=== PATIENT | female | born 1955 | race Caucasian/White ===

== ENCOUNTER 2016-04-19 21:43 | Emergency (ER) | payer MEDICARE ==
[~2016-04-19 21:43] MED LIST: AMLO10TA2 PO; CALC-250 PO; CYAN10005 PO; CYCL10TA2 PO; HYDR12.58 PO; LISI40TA PO; LOVA20TA2 PO; MAGN400T3 PO; MELO-150 PO; PROVENTIL HFA6.7 GM IH
[2016-04-19] MEDS ORDERED: ONDANSETRON PF 4 MG/2 ML VIAL. IV ONE (23:00)
[2016-04-19] MEDS ORDERED: IPRATRPIUM/ALBUTEROL 0.5/2.5MG 3 ML NEBU. NEB ONE (23:00)
[2016-04-19] MEDS ORDERED: HYDROMORPHONE 2 MG/ML VIAL. IV ONE (23:00)
[2016-04-19] MEDS ORDERED: methylPREDNISolone SOD SUCC PF 125 MG/2 ML VIAL. IV ONE (23:00)
[2016-04-19 23:30] LABS: BASO # 0.1 x10^3/uL (0.0-0.2); BASO % 1 % (0-3); EOS % 1 % (0-3); HEMATOCRIT 34.1 % (36.0-47.0); HEMOGLOBIN 11.2 g/dL (12.0-15.5); LYMPH # 3.1 x10^3/uL (1.0-4.8); LYMPH % 24 % (24-48); MEAN CORPUSCULAR HEMOGLOBIN 28 pg (25-35); MEAN CORPUSCULAR HGB CONC 33 g/dL (31-37); MEAN CORPUSCULAR VOLUME 84 fL (79-100); MONO % 6 % (0-9); NEUT % 68 % (31-73); PLATELET COUNT 456 x10^3/uL (140-400); RED BLOOD COUNT 4.06 x10^6/uL (3.50-5.40); RED CELL DISTRIBUTION WIDTH 15.6 % (11.5-14.5); WHITE BLOOD COUNT 12.9 x10^3/uL (4.0-11.0)
[2016-04-19 23:41] LABS: CALCIUM 9.3 mg/dL (8.5-10.1); GFR 56.4; POTASSIUM 3.4 mmol/L (3.5-5.1)
[2016-04-19 23:47] LABS: ALBUMIN 2.9 g/dL (3.4-5.0); ALBUMIN/GLOBULIN RATIO 0.6 (1.0-1.7); TOTAL BILIRUBIN 0.3 mg/dL (0.2-1.0)
[2016-04-20 00:24] LABS: OBC FLU VALID
[2016-04-20] MEDS ORDERED: PRED50TA PO (01:42)
[2016-04-20] MEDS ORDERED: HYDR-2678 PO (01:42)
--- NOTE | 2016-04-20 01:42 | PHYS DOC ---
Past Medical History Past Medical History: Anxiety, Asthma, Diabetes-Type II, High Cholesterol, Hypertension, Migraines Additional Past Medical Histor: osteoarthritis, eye lens, chronic ankle pain, KIDNEY DISEASE, neuropathy Past Surgical History: Hysterectomy, Tonsillectomy Additional Past Surgical Histo: eye lens placed (pseudophakia), multiple foot surgeries Alcohol Use: None Drug Use: None Adult General Chief Complaint Chief Complaint: COUGH HPI HPI Patient is a 61 year old female who presents here today secondary to cough for approximately a month. Patient reports that she came to the ER today because she was coughing so hard this afternoon that she felt a pop in her chest and her back. Patient is currently complaining of back discomfort. Patient has any fever or shaking chills nausea vomiting diarrhea. Patient reports that she's had this cough for approximately one half months and has seen her primary care physician for this. Patient reports she has a history of hypertension diabetes and asthma. Patient does smoke approximately 4-5 packs of cigarettes per day. Patient denies any coronary disease and MIs or heart failure. Patient reports that she has medications at home that she takes for her COPD and asthma. Review of Systems Review of Systems Constitutional: Denies fever or chills [] Eyes: Denies change in visual acuity, redness, or eye pain [] Review of systems are negative except as documented in history of present illness portion. Current Medications Current Medications Current Medications Medications (Trade) Dose Ordered Sig/Cain Start Time Stop Time Status Last Admin Dose Admin Albuterol/ Ipratropium (Duoneb) 3 ml 1X ONCE 04/19/16 23:00 04/19/16 23:01 DC 04/19/16 22:51 3 ML Hydromorphone HCl (Dilaudid) 1 mg 1X ONCE 04/19/16 23:00 04/19/16 23:01 DC 04/19/16 23:37 1 MG Methylprednisolone Sodium Succinate (Solu-Medrol 125mg Vial) 125 mg 1X ONCE 04/19/16 23:00 04/19/16 23:01 DC 04/19/16 23:36 125 MG Ondansetron HCl (Zofran) 4 mg 1X ONCE 04/19/16 23:00 04/19/16 23:01 DC 04/19/16 23:37 4 MG Allergies Allergies Allergies Coded Allergies Type Severity Reaction Last Updated Verified chlorpheniramine Allergy Severe Shortness of Air 09/16/14 Yes codeine Allergy Severe altered mental status 09/16/14 Yes dihydrocodeine Allergy Severe Shortness of Air 09/16/14 Yes phenylephrine Allergy Severe Shortness of Air 09/16/14 Yes pseudoephedrine Allergy Severe Shortness of Air 09/16/14 Yes Penicillins Allergy Intermediate Itching 09/16/14 Yes egg Allergy Mild Hives 09/16/14 Yes lactase Allergy Mild diarrhea 09/16/14 Yes Physical Exam Physical Exam Constitutional: Well developed, well nourished, no acute distress, non-toxic appearance. [] HENT: Normocephalic, atraumatic, bilateral external ears normal, oropharynx moist, no oral exudates, nose normal. [] Eyes: PERRLA, EOMI, conjunctiva normal, no discharge. [] Neck: Normal range of motion, no tenderness, supple, no stridor. [] Cardiovascular:Heart rate regular rhythm, expiratory wheezing. Patient does have tenderness to palpation to her lower back. [] Abdomen: Bowel sounds normal, soft, no tenderness, no masses, no pulsatile masses. [] Skin: Warm, dry, no erythema, no rash. [] Back: No tenderness, no CVA tenderness. [] Extremities: No tenderness, no cyanosis, no clubbing, ROM intact, no edema. [] Neurologic: Alert and oriented X 3, normal motor function, normal sensory function, no focal deficits noted. [] Psychologic: Affect normal, judgement normal, mood normal. [] Current Patient Data Vital Signs Vital Signs Date Time Temp Pulse Resp B/P Pulse Ox O2 Delivery O2 Flow Rate FiO2 04/19/16 23:37 Room Air 04/19/16 22:50 91 04/19/16 22:04 98.3 116 24 190/80 98.3 Lab Values Laboratory Tests Test 04/19/16 23:25 04/19/16 23:59 White Blood Count 12.9x10^3/uL (4.0-11.0) H Red Blood Count 4.06x10^6/uL (3.50-5.40) Hemoglobin 11.2g/dL (12.0-15.5) L Hematocrit 34.1% (36.0-47.0) L Mean Corpuscular Volume 84fL (79-100) Mean Corpuscular Hemoglobin 28pg (25-35) Mean Corpuscular Hemoglobin Concent 33g/dL (31-37) Red Cell Distribution Width 15.6% (11.5-14.5) H Platelet Count 456x10^3/uL (140-400) H Neutrophils (%) (Auto) 68% (31-73) Lymphocytes (%) (Auto) 24% (24-48) Monocytes (%) (Auto) 6% (0-9) Eosinophils (%) (Auto) 1% (0-3) Basophils (%) (Auto) 1% (0-3) Neutrophils # (Auto) 8.8x10^3uL (1.8-7.7) H Lymphocytes # (Auto) 3.1x10^3/uL (1.0-4.8) Monocytes # (Auto) 0.7x10^3/uL (0.0-1.1) Eosinophils # (Auto) 0.2x10^3/uL (0.0-0.7) Basophils # (Auto) 0.1x10^3/uL (0.0-0.2) Sodium Level 133mmol/L (136-145) L Potassium Level 3.4mmol/L (3.5-5.1) L Chloride Level 93mmol/L (98-107) L Carbon Dioxide Level 28mmol/L (21-32) Anion Gap 12 (6-14) Blood Urea Nitrogen 10mg/dL (7-20) Creatinine 1.0mg/dL (0.6-1.0) Estimated GFR (Cockcroft-Gault) 56.4 BUN/Creatinine Ratio 10 (6-20) Glucose Level 124mg/dL (70-99) H Calcium Level 9.3mg/dL (8.5-10.1) Total Bilirubin 0.3mg/dL (0.2-1.0) Aspartate Amino Transferase (AST) 21U/L (15-37) Alanine Aminotransferase (ALT) 25U/L (14-59) Alkaline Phosphatase 127U/L (46-116) H Troponin I Quantitative < 0.017ng/mL (0.000-0.055) Total Protein 8.0g/dL (6.4-8.2) Albumin 2.9g/dL (3.4-5.0) L Albumin/Globulin Ratio 0.6 (1.0-1.7) L Influenza Type A Antigen Negative (NEGATIVE) Influenza Type B Antigen Negative (NEGATIVE) Laboratory Tests 04/19/16 23:25 Laboratory Tests 04/19/16 23:25 EKG EKG EKG reveals sinus tachycardia at 112. No evidence of acute ischemia. [] Radiology/Procedures Radiology/Procedures [] Chest x-ray reveals a normal heart size. No infiltrates or effusions. Course & Med Decision Making Course & Med Decision Making Pertinent Labs and Imaging studies reviewed. (See chart for details) [] This is a 61-year-old female who presents here today complaining of cough times one and half months. Patient has a history significant for severe COPD likely secondary to her 5 pack per day history of tobacco abuse. Patient was given albuterol neb here as well as steroids and she feels significant improved after the pain medicines. Patient is requesting to be discharged at this time and feels very comfortable with the plan to follow up with her primary care physician within the next 1-2 days. Patient does not feel that she needs to be admitted at this time. Admission was offered however patient currently is resting comfortably and says that she would prefer to do that at home. Dragon Disclaimer Dragon Disclaimer This electronic medical record was generated, in whole or in part, using a voice recognition dictation system. Departure Departure Impression: Primary Impression: COPD exacerbation Additional Impressions: Cough Chest wall pain Back pain Tobacco abuse Tobacco abuse counseling Disposition: 01 HOME, SELF-CARE Condition: IMPROVED Referrals: EVELINE MISTRY APRN (PCP) Patient Instructions: Back Pain, Adult, Chest Wall Pain, Chronic Obstructive Pulmonary Disease Exacerbation, Smoking Cessation Scripts Prednisone 50 Mg Tablet1 Tab PO DAILY #5 TAB Prov:PAUL COELLO MD 04/20/16 Hydrocodone/Acetaminophen (Lortab 5-325 mg Tablet)1 Each Tablet1 Tab PO PRN Q6HRS PRN PAIN #14 TAB Prov:PAUL COELLO MD 04/20/16 Problem Qualifiers PAUL COELLO MD Apr 20, 2016 01:42
[2016-04-20 01:52] VITALS: BP 149/69
--- NOTE | 2016-04-20 08:22 | RAD ---
Portable chest, 04/19/2016: History: Cough and shortness of breath Comparison is made to a study from 01/13/2006. The heart size and pulmonary vascularity are normal. No pulmonary are seen. There is no evidence of pleural fluid. IMPRESSION: No acute cardiopulmonary abnormality is detected.
--- NOTE | 2016-04-20 12:23 | EKG ---
[facility] [address] [place] [address] Test Date: 2016-04-19 Test Time: 22:22:53 Pat Name: RODOLFO ORELLANA Department: Room: Gender: F [employer] Laminator: : 1955 Requested By: PAUL COELLO Order Number: [id number] Reading MD: Sylwia Dutton Measurements Intervals [place] Rate: 112 P: 10 DE: 146 QRS: 28 QRSD: 90 T: 66 QT: 334 QTc: 458 Interpretive Statements SINUS TACHYCARDIA ATRIAL PREMATURE COMPLEX(ES) LEFT ATRIAL ABNORMALITY T ABNORMALITY IN HIGH LATERAL LEADS ABNORMAL ECG RI6.01 No previous ECG available for comparison Electronically Signed On 04-22-2016 0:26:03 [employer] by Sylwia Dutton
== END 2016-04-20 02:25 | disposition home or self-care (01) ==
LOC: ER 21:43
DX: J44.1 Chronic obstructive pulmonary disease with (acute) exacerbation (principal); M54.9 Dorsalgia, unspecified; F17.210 Nicotine dependence, cigarettes, uncomplicated; I10 Essential (primary) hypertension; F41.9 Anxiety disorder, unspecified; E78.00 Pure hypercholesterolemia, unspecified; G89.29 Other chronic pain; J45.909 Unspecified asthma, uncomplicated; E11.42 Type 2 diabetes mellitus with diabetic polyneuropathy; M19.90 Unspecified osteoarthritis, unspecified site; G43.909 Migraine, unspecified, not intractable, without status migrainosus; Z71.6 Tobacco abuse counseling; Z88.0 Allergy status to penicillin; Z88.8 Allergy status to other drugs, medicaments and biological substances; Z88.5 Allergy status to narcotic agent; Z91.012 Allergy to eggs; Z91.011 Allergy to milk products; Z79.899 Other long term (current) drug therapy
CPT/HCPCS: 36415; 71010; 80053; 84484; 85027; 87804; 93005; 94250; 94640; 96374; 96375; 99285; J1170; J2405; J2930; J7620